=== PATIENT | male | born 1960 | race Caucasian/White ===

== ENCOUNTER 2017-01-08 15:00 | Emergency (ER) | payer MEDICAID ==
[~2017-01-08] VITALS: Ht 172.7 cm; Wt 85.0 kg
[2017-01-08 15:10] VITALS: Ht 172.7 cm; Wt 85.0 kg
[2017-01-08] MEDS ORDERED: SOD CHLORIDE 0.9% 1,000 ML IV STA (16:24)
--- NOTE | 2017-01-08 16:45 | RADRPT ---
PROCEDURE: XR Chest. CLINICAL INDICATION: Abdominal pain TECHNIQUE: Single frontal view of the chest was obtained COMPARISON: None FINDINGS: The heart and mediastinum are within normal limits. The lungs are clear. There is no pleural effusion or pneumothorax. RPTAT: AA IMPRESSION: No acute disease. .Josué Garcia MD, Date Time Electronically viewed and signed by .Josué Garcia MD, on 01/08/2017 16:45 .S/
[2017-01-08 16:54] LABS: BASOPHIL # 0.1 10^3/ul (0.0-0.1); BASOPHILS % 0.8 % (0.0-2.0); EOSINOPHILS % 0.1 % (0.0-7.0); HEMATOCRIT 33.9 % (42.0-52.0); HEMOGLOBIN 11.6 g/dl (14.0-18.0); LYMPHOCYTES # 0.8 10^3/ul (0.8-2.9); LYMPHOCYTES % 7.7 % (15.0-51.0); MEAN CORPUSCULAR HEMOGLOBIN 29.3 pg (29.0-33.0); MEAN CORPUSCULAR HGB CONC 34.2 g/dl (32.0-37.0); MEAN CORPUSCULAR VOLUME 85.6 fl (82.0-101.0); MEAN PLATELET VOLUME 8.2 fl (7.4-10.4); MONOCYTE # 0.7 10^3/ul (0.3-0.9); MONOCYTES % 7.2 % (0.0-11.0); NEUTROPHIL # 8.1 10^3/ul (1.6-7.5); PLATELET COUNT 232 10^3/UL (140-415); RED BLOOD COUNT 3.96 10^6/ul (4.70-6.10); RED CELL DISTRIBUTION WIDTH 20.3 % (11.5-14.5); WHITE BLOOD COUNT 9.7 10^3/ul (4.8-10.8)
[2017-01-08 17:16] LABS: ALANINE AMINOTRANSFERASE 48 IU/L (13-69); ALBUMIN 5.4 g/dl (3.3-4.9); ALBUMIN/GLOBULIN RATIO 1.31; ALKALINE PHOSPHATASE 67 IU/L (42-121); ANION GAP 22 (8-16); ASPARTATE AMINO TRANSFERASE 91 IU/L (15-46); BILIRUBIN,INDIRECT 0.4 mg/dl (0-1.1); BILIRUBIN,TOTAL 0.4 mg/dl (0.2-1.3); BLOOD UREA NITROGEN 12 mg/dl (7-20); CALCIUM 9.4 mg/dl (8.4-10.2); CARBON DIOXIDE 25 mmol/L (21-31); CHLORIDE 100 mmol/L (97-110); CREATININE 1.02 mg/dl (0.61-1.24); GLUCOSE 90 mg/dl (70-220); POTASSIUM 4.9 mmol/L (3.5-5.1); SODIUM 142 mmol/L (135-144); TOTAL PROTEIN 9.5 g/dl (6.1-8.1)
[2017-01-08] MEDS ORDERED: ATEN50TA PO (17:16)
[2017-01-08] MEDS ORDERED: LISI20TA11 PO (17:17)
[2017-01-08 17:27] LABS: TROPONIN-I < 0.012 ng/ml (0.00-0.12)
[2017-01-08] MEDS ORDERED: LISI10TA2 PO (18:25)
[2017-01-08] MEDS ORDERED: ATEN-51 PO (18:25)
[2017-01-08] MEDS ORDERED: LORAZEPAM 0.5 MG TAB PO ONE (18:30)
--- NOTE | 2017-01-08 18:30 | ERD ---
ER Documentation Chief Complaint Chief Complaint sycope while sitting on bus HPI 56-year-old man brought in by EMS after syncopal episode while on a bus. He is an alcoholic and has been drinking less today compared to other days. He was helped down to the ground he denies head or neck injury, no blood per rectum or melena, no complaints of chest pain or shortness of breath. Patient is asymptomatic at this time and states he was walking under the sun today and felt dehydrated. ROS All systems reviewed and are negative except as per history of present illness. Medications Home Meds Active Scripts Lisinopril* (Lisinopril*) 10 Mg Tablet, 10 MG PO DAILY, #30 TAB Prov:MELISSA ARNOLD MD 01/08/17 Atenolol* (Atenolol*) 25 Mg Tablet, 25 MG PO BID, #60 TAB Prov:MELISSA ARNOLD MD 01/08/17 Reported Medications Lisinopril* (Lisinopril*) 20 Mg Tablet, 20 MG PO DAILY, #30 TAB NOT REGULARLY 01/08/17 Atenolol* (Atenolol*) 50 Mg Tablet, 50 MG PO DAILY, #30 TAB NOT REGULARLY 01/08/17 Allergies Allergies: Coded Allergies: No Known Allergy (Unverified , 01/08/17) PMhx/Soc Hypertension, alcoholism Medical and Surgical Hx: pt denies Surgical Hx Hx Cardiac Disorders: Yes (htn) Hx Alcohol Use: No Hx Substance Use: No Hx Tobacco Use: No Smoking Status: Never smoker FmHx Family History: No diabetes Physical Exam Vitals Vital Signs Date Time Temp Pulse Resp B/P Pulse Ox O2 Delivery O2 Flow Rate FiO2 01/08/17 19:20 97.9 60 22 128/81 98 Room Air 01/08/17 18:08 56 22 135/87 98 Room Air 01/08/17 16:09 59 21 118/80 95 Room Air 01/08/17 15:10 97.9 54 15 137/80 95 Physical Exam GENERAL: Well-developed, well-nourished, appears dehydrated, afebrile HEENT: Dry mucous membranes, pink conjunctiva, no cervical spine tenderness or step-off deformities, no goiter, no jaundice or icterus, extraocular movements intact without pain. No submandibular induration, and no pharyngeal erythema NEURO: Alert and oriented 3, cranial nerves II through XII intact bilaterally, pupils equal round reactive to light, no focal deficits or facial asymmetry, sensation intact distally Strength 5/5 in upper and lower extremities bilaterally CARDIAC: Bradycardic and regular, no murmurs rubs or gallops LUNGS: Clear bilaterally no wheezing crackles or stridor ABDOMEN: Soft nontender, no guarding, no rigidity, no rebound, no psoas sign no obturator sign. Normoactive bowel sounds SKIN: Warm and dry to touch, no abrasions, contusions, or hematomas, no lacerations, no ecchymosis, no target lesions, and without ulcers EXTREMITIES: No clubbing cyanosis or edema, calves are bilaterally symmetrical, no Homans sign, no popliteal cord sign. Distal pulses equal and bilateral PSYCH: Normal affect without agitation or irritability Result Diagram: 01/08/17 1640 01/08/17 1640 Results 24 hrs Laboratory Tests Test 01/08/17 16:40 White Blood Count 9.710^3/ul Red Blood Count 3.9610^6/ul Hemoglobin 11.6g/dl Hematocrit 33.9% Mean Corpuscular Volume 85.6fl Mean Corpuscular Hemoglobin 29.3pg Mean Corpuscular Hemoglobin Concent 34.2g/dl Red Cell Distribution Width 20.3% Platelet Count 65502^3/UL Mean Platelet Volume 8.2fl Neutrophils % 84.0% Lymphocytes % 7.7% Monocytes % 7.2% Eosinophils % 0.1% Basophils % 0.8% Nucleated Red Blood Cells % 0.0/100WBC Neutrophils # 8.110^3/ul Lymphocytes # 0.810^3/ul Monocytes # 0.710^3/ul Eosinophils # 0.010^3/ul Basophils # 0.110^3/ul Nucleated Red Blood Cells # 0.010^3/ul Sodium Level 142mmol/L Potassium Level 4.9mmol/L Chloride Level 100mmol/L Carbon Dioxide Level 25mmol/L Anion Gap 22 Blood Urea Nitrogen 12mg/dl Creatinine 1.02mg/dl Glucose Level 90mg/dl Calcium Level 9.4mg/dl Total Bilirubin 0.4mg/dl Direct Bilirubin 0.00mg/dl Indirect Bilirubin 0.4mg/dl Aspartate Amino Transf (AST/SGOT) 91IU/L Alanine Aminotransferase (ALT/SGPT) 48IU/L Alkaline Phosphatase 67IU/L Troponin I < 0.012ng/ml Total Protein 9.5g/dl Albumin 5.4g/dl Globulin 4.10g/dl Albumin/Globulin Ratio 1.31 Lipase 657U/L Current Medications Medications (Trade) Dose Ordered Sig/Tñoo Route PRN Reason Start Time Stop Time Status Last Admin Dose Admin Sodium Chloride (NS) 1,000 ml @ 1,000 mls/hr Q1H STAT IV 01/08/17 16:24 01/08/17 17:23 DC 01/08/17 16:49 Lorazepam (Ativan) 0.5 mg ONCE ONCE PO 01/08/17 18:30 01/08/17 18:31 DC 01/08/17 18:51 Procedures/MDM IV line was established patient was placed on cardiac monitor technician rhythm strip revealed a sinus r bradycardia 55 bpm with upright P and T waves. Patient was afebrile EKG performed, read by me revealed a sinus bradycardia 55 bpm, normal axis, narrow QRS complex, no concerning ST elevations or depressions noted. I administered 1 L normal saline intravenously and lorazepam 0.5 mg p.o. for alcohol withdrawal. One AP view of the chest performed, read by me reveals no acute infiltrates, normal mediastinum, sharp costophrenic and cardiac borders, no air under the diaphragm. Otherwise unremarkable chest x-ray. CBC and electrolytes were unremarkable, liver function tests were normal, troponin was negative. Differential diagnoses considered, included but not limited to acute coronary syndrome, pulmonary embolism, aortic dissection, abdominal aortic aneurysm, sepsis, stroke, meningitis, encephalitis, pneumonia, appendicitis, cholecystitis , bowel obstruction, pyelonephritis, nephrolithiasis, cystitis, as well as metabolic, hematologic, and electrolyte abnormalities. As well as abscess, cellulitis, fractures, and dislocations. Patient feels much better at this time, and vital signs are normal, symptoms have improved. I did give strict instructions to return to the ED if symptoms continue or worsen, patient will otherwise follow-up with primary care physician. Patient understood instructions and agreed to plan. Disclaimer: Inadvertent spelling and grammatical errors are likely due to EHR/ dictation software use and do not reflect on the overall quality of patient care. Also, please note that the electronic time recorded on this note does not necessarily reflect the actual time of the patient encounter. Departure Diagnosis: Primary Impression: Syncope Syncope type: unspecified Qualified Code: R55 - Syncope, unspecified syncope type Additional Impressions: Alcohol withdrawal Complication of substance-induced condition: uncomplicated Qualified Code: F10.230 - Alcohol withdrawal syndrome without complication Alcohol abuse Hypertension Hypertension type: essential hypertension Qualified Code: I10 - Essential hypertension Condition: Good Patient Instructions: Syncope, Unk Cause MELISSA ARNOLD MD Jan 08, 2017 18:30
[2017-01-08 19:20] VITALS: BP 128/81; PULSE 60; RESP 22; TEMP 97.9
== END 2017-01-08 19:21 | disposition home or self-care (01) ==
LOC: E/R 15:00
DX: R55 Syncope and collapse (principal); F10.230 Alcohol dependence with withdrawal, uncomplicated; I10 Essential (primary) hypertension
CPT/HCPCS: 36415; 71010; 80053; 83690; 84484; 85025; 93005; J7030; Z7502; Z7610